=== PATIENT | male | born 1960 | race Caucasian/White ===

== ENCOUNTER 2021-04-20 12:50 | Inpatient (IN) | payer SELFPAY ==
[~2021-04-20] VITALS: Ht 180.3 cm; Wt 86.2 kg
[2021-04-20 14:19] LABS: HEMOGLOBIN 10.8 gm/dl (14.0-17.5); RED BLOOD COUNT 4.44 M/UL (4.20-5.50); WHITE BLOOD COUNT 9.7 K/UL (4.5-11.0)
[2021-04-20 14:40] LABS: BUN/CREATININE RATIO 15 (0-10)
[2021-04-20] MEDS ORDERED: FISH OIL 1,0001 EACH PO (22:24)
[2021-04-20] MEDS ORDERED: LISINOPRIL5 MG PO (22:24)
[2021-04-20] MEDS ORDERED: ASPIRIN CHEWABL81 MG PO (22:24)
[2021-04-20] MEDS ORDERED: METFORMIN HCL500 M2 PO (22:26)
[2021-04-20] MEDS ORDERED: MAGNESIUM200 MG PO (22:26)
[2021-04-21 04:00] LABS: BUN/CREATININE RATIO 14 (0-10)
[2021-04-21 05:02] LABS: RED BLOOD COUNT 3.96 M/UL (4.20-5.50); WHITE BLOOD COUNT 7.6 K/UL (4.5-11.0)
[2021-04-21 10:35] LABS: BODY FLUID SOURCE PLEURAL; RBC (AUTOMATED) 24300 (0-100000); WBC (AUTOMATED) 1212 (0-500)
[2021-04-21 10:36] LABS: MONONUCLEAR CELLS 94 (75-100); POLYMORPHONUCLEAR % 6 (0-25)
[2021-04-21 11:44] LABS: LDH, BODY FLUID 749 U/L; TOTAL PROTEIN, BODY FLUID 2.9 gm/dL
[2021-04-22 03:26] LABS: BUN/CREATININE RATIO 19 (0-10)
[2021-04-22 03:34] LABS: HEMOGLOBIN 9.5 gm/dl (14.0-17.5); RED BLOOD COUNT 3.83 M/UL (4.20-5.50)
[2021-04-22 03:40] LABS: WHITE BLOOD COUNT 9.9 K/UL (4.5-11.0)
[2021-04-22 15:11] LABS: HEMATOCRIT 33.4 % (37.5-51.0)
[2021-04-22 23:25] LABS: HEMOGLOBIN 8.9 gm/dl (14.0-17.5); RED BLOOD COUNT 3.65 M/UL (4.20-5.50); WHITE BLOOD COUNT 9.9 K/UL (4.5-11.0)
[2021-04-23 03:21] LABS: RED BLOOD COUNT 3.68 M/UL (4.20-5.50); WHITE BLOOD COUNT 9.1 K/UL (4.5-11.0)
[2021-04-23 03:38] LABS: BUN/CREATININE RATIO 18 (0-10)
[2021-04-23] MEDS ORDERED: PROTONIX40 MG PO (09:44)
[2021-04-23] MEDS ORDERED: LEVOFLOXACIN750 MG PO (09:44)
[2021-04-23] MEDS ORDERED: CHRONULAC20 GM/30 M PO (09:44)
[2021-04-23] MEDS ORDERED: ZOFRAN 4 MG TAB4 MG PO (09:44)
[2021-04-23] MEDS ORDERED: COMBIVENT RESPIM4 GM INH (09:44)
[2021-04-23] MEDS ORDERED: SYMBICORT 16010.2 GM INH (09:44)
[2021-04-23] MEDS ORDERED: FERROUS SULFAT325 M2 PO (09:44)
[2021-04-23] MEDS ORDERED: HYDROCODON-ACE1 EAC4 PO (11:10)
--- NOTE | 2021-04-23 11:13 | NUR ---
PT DROPPED TO 87% ON ROOM AIR
== END 2021-04-23 13:47 | disposition home or self-care (01) | DRG 167 ==
LOC: ER1 12:50 → PROG CARE 20:38 → CDU 20:38 → PROG CARE 22:12
PROVIDERS: Internal Medicine; Internal Medicine Critical Care Medicine; Internal Medicine Hematology & Oncology; Physician Assistant; ADMIT Internal Medicine
PROC: 0W993ZZ Drainage of Right Pleural Cavity, Percutaneous Approach (ICD-10-PCS; principal; 2021-04-21)
PROC: 0BBK8ZX Excision of Right Lung, Via Natural or Artificial Opening Endoscopic, Diagnostic (ICD-10-PCS; 2021-04-22)
PROC: 0BB48ZX Excision of Right Upper Lobe Bronchus, Via Natural or Artificial Opening Endoscopic, Diagnostic (ICD-10-PCS; 2021-04-22)
PROC: 0B9K8ZX Drainage of Right Lung, Via Natural or Artificial Opening Endoscopic, Diagnostic (ICD-10-PCS; 2021-04-22)
PROC: 0BD48ZX Extraction of Right Upper Lobe Bronchus, Via Natural or Artificial Opening Endoscopic, Diagnostic (ICD-10-PCS; 2021-04-22)
DX: C34.11 Malignant neoplasm of upper lobe, right bronchus or lung (principal); J91.0 Malignant pleural effusion; C77.9 Secondary and unspecified malignant neoplasm of lymph node, unspecified; E87.1 Hypo-osmolality and hyponatremia; E46 Unspecified protein-calorie malnutrition; C78.2 Secondary malignant neoplasm of pleura; J44.9 Chronic obstructive pulmonary disease, unspecified; F17.210 Nicotine dependence, cigarettes, uncomplicated; K21.9 Gastro-esophageal reflux disease without esophagitis; D50.9 Iron deficiency anemia, unspecified; R63.0 Anorexia; E86.0 Dehydration; E78.5 Hyperlipidemia, unspecified; E11.9 Type 2 diabetes mellitus without complications; E78.00 Pure hypercholesterolemia, unspecified; Z88.0 Allergy status to penicillin; Z79.84 Long term (current) use of oral hypoglycemic drugs; Z79.899 Other long term (current) drug therapy; Z79.82 Long term (current) use of aspirin; Z68.26 Body mass index [BMI] 26.0-26.9, adult
CPT/HCPCS: 36415; 71045; 71260; 80048; 80053; 81001; 82550; 82553; 82607; 82728; 82747; 82962; 83540; 83550; 83605; 83615; 83690; 83735; 83921; 83986; 84100; 84155; 84157; 84439; 84443; 84484; 84550; 85025; 85045; 85610; 85652; 86140; 87015; 87070; 87116; 87205; 89051; 93005; 94640; 94760; 96374; 96375; 96376; 99285; C9113; J0330; J1885; J2270; J2405; J3010; J3370; J3475; J7030; J7040; J7070; Q9967; U0002

== ENCOUNTER → 2021-04-30 | Outpatient (CLI) | payer OTHER ==
[~2021-04-30] MED LIST: ASPIRIN CHEWABL81 MG PO; CHRONULAC20 GM/30 M PO; COMBIVENT RESPIM4 GM INH; FERROUS SULFAT325 M2 PO; FISH OIL 1,0001 EACH PO; HYDROCODON-ACE1 EAC4 PO; LEVOFLOXACIN750 MG PO; LISINOPRIL5 MG PO; MAGNESIUM200 MG PO; METFORMIN HCL500 M2 PO; PROTONIX40 MG PO; SYMBICORT 16010.2 GM INH; ZOFRAN 4 MG TAB4 MG PO
== END ==
LOC: HEART 5 14:04
DX: J44.9 Chronic obstructive pulmonary disease, unspecified (principal)
CPT/HCPCS: 94060; 94729

== ENCOUNTER → 2021-05-08 | Outpatient (CLI) | payer OTHER ==
[~2021-05-08] MED LIST changes: +B COMPLEX1 EACH PO; +BENADRYL25 MG PO; +FERROUS SULFAT325 MG PO; +HYDROCODON-ACE1 EAC2 PO; +MAGNESIUM400 M2 PO; +PEPCID; +PEPCID20 MG PO; +PROTONIX 40 MG40 M1 PO; +VITAMIN E180 MG PO
[2021-05-08 12:00] LABS: HEMOGLOBIN 9.4 gm/dl (14.0-17.5); RED BLOOD COUNT 3.85 M/UL (4.20-5.50); WHITE BLOOD COUNT 9.6 K/UL (4.5-11.0)
[2021-05-08 12:27] LABS: BUN/CREATININE RATIO 23 (0-10)
== END ==
LOC: OPSV2 09:59
PROVIDERS: Surgery
DX: Z01.818 Encounter for other preprocedural examination (principal); R91.8 Other nonspecific abnormal finding of lung field
CPT/HCPCS: 36415; 71046; 80048; 85025; 93005

== ENCOUNTER → 2021-05-12 | Day surgery (SDC) | payer OTHER ==
[~2021-05-12] VITALS: Ht 180.3 cm; Wt 86.2 kg
== END | disposition home or self-care (01) ==
LOC: OR 06:08
DX: C34.91 Malignant neoplasm of unspecified part of right bronchus or lung (principal); J91.8 Pleural effusion in other conditions classified elsewhere; J44.9 Chronic obstructive pulmonary disease, unspecified; I10 Essential (primary) hypertension; E78.00 Pure hypercholesterolemia, unspecified; E11.9 Type 2 diabetes mellitus without complications; F17.210 Nicotine dependence, cigarettes, uncomplicated; Z88.0 Allergy status to penicillin; Z79.82 Long term (current) use of aspirin; Z79.899 Other long term (current) drug therapy; Z20.822 Contact with and (suspected) exposure to COVID-19
CPT/HCPCS: 71045; 77001; 82962; C1729; C1750; C1769; C1788; J1100; J1642; J2001; J2405; J2704; J3010; J3370; J7030; J7040; J7070; J7120

== ENCOUNTER → 2021-05-19 | Outpatient (CLI) | payer OTHER | LOC: MRI 15:00 | DX: C34.31 Malignant neoplasm of lower lobe, right bronchus or lung (principal); C78.02 Secondary malignant neoplasm of left lung | CPT/HCPCS: 70553; A9577 ==

== ENCOUNTER → 2021-07-09 | Outpatient (CLI) | payer OTHER ==
[2021-07-09 10:19] LABS: HEMOGLOBIN 10.2 gm/dl (14.0-17.5); RED BLOOD COUNT 4.23 M/UL (4.20-5.50); WHITE BLOOD COUNT 7.6 K/UL (4.5-11.0)
[2021-07-09 10:44] LABS: BUN/CREATININE RATIO 33 (0-10)
== END ==
LOC: CT 06-26 13:30
PROVIDERS: Internal Medicine Hematology & Oncology
DX: C34.31 Malignant neoplasm of lower lobe, right bronchus or lung (principal); C78.02 Secondary malignant neoplasm of left lung; C79.51 Secondary malignant neoplasm of bone
CPT/HCPCS: 36415; 71260; 80053; 84443; 85025; Q9967

== ENCOUNTER → 2021-07-23 | Day surgery (SDC) | payer OTHER | END | disposition home or self-care (01) | LOC: OR 07:59 | DX: K22.4 Dyskinesia of esophagus (principal); R10.9 Unspecified abdominal pain; J44.9 Chronic obstructive pulmonary disease, unspecified; Z85.118 Personal history of other malignant neoplasm of bronchus and lung; Z92.21 Personal history of antineoplastic chemotherapy; Z72.0 Tobacco use; Z88.0 Allergy status to penicillin | CPT/HCPCS: J2704; J3010; J7040 ==

== ENCOUNTER 2021-07-29 14:26 | Inpatient (IN) | payer OTHER ==
[~2021-07-29] VITALS: Ht 180.3 cm; Wt 73.5 kg
[2021-07-29 15:14] LABS: HEMOGLOBIN 9.3 gm/dl (14.0-17.5); RED BLOOD COUNT 3.77 M/UL (4.20-5.50)
[2021-07-29 15:42] LABS: BUN/CREATININE RATIO 29 (0-10)
[2021-07-30 03:10] LABS: HEMOGLOBIN 9.1 gm/dl (14.0-17.5); RED BLOOD COUNT 3.68 M/UL (4.20-5.50)
[2021-07-30 03:13] LABS: WHITE BLOOD COUNT 8.2 K/UL (4.5-11.0)
[2021-07-30 03:34] LABS: BUN/CREATININE RATIO 43 (0-10)
[2021-07-30] MEDS ORDERED: ALBUTEROL2.5 MG/3 M INH (09:23)
[2021-07-30] MEDS ORDERED: PROVENTIL HFA6.7 GM INH (09:26)
[2021-07-30] MEDS ORDERED: FEROSUL325 MG PO (09:26)
[2021-07-30 17:08] LABS: HEMOGLOBIN 8.2 gm/dl (14.0-17.5)
[2021-07-31] MEDS ORDERED: ROBITUSSIN100 MG/5 M PO (11:30)
[2021-07-31] MEDS ORDERED: NICOTINE PATCH1 EAC2 TOP (11:30)
[2021-07-31 12:42] LABS: HEMOGLOBIN 7.9 gm/dl (14.0-17.5); WHITE BLOOD COUNT 7.4 K/UL (4.5-11.0)
[2021-07-31 12:57] LABS: RED BLOOD COUNT 3.18 M/UL (4.20-5.50)
[2021-07-31 13:09] LABS: BUN/CREATININE RATIO 39 (0-10)
[2021-07-31] MEDS ORDERED: MS CONTIN TAB S15 MG PO (13:20)
== END 2021-07-31 16:39 | disposition home or self-care (01) | DRG 180 ==
LOC: ER1 14:26 → CDU 17:49 → PROG CARE 17:49
PROVIDERS: Internal Medicine Critical Care Medicine; Preventive Medicine Occupational Medicine; Surgery; ADMIT Internal Medicine
PROC: 0WH933Z Insertion of Infusion Device into Right Pleural Cavity, Percutaneous Approach (ICD-10-PCS; 2021-07-30)
PROC: 0WP9X3Z Removal of Infusion Device from Right Pleural Cavity, External Approach (ICD-10-PCS; principal; 2021-07-30 12:00)
DX: C34.90 Malignant neoplasm of unspecified part of unspecified bronchus or lung (principal); J18.9 Pneumonia, unspecified organism; J96.21 Acute and chronic respiratory failure with hypoxia; Z20.822 Contact with and (suspected) exposure to COVID-19; J90 Pleural effusion, not elsewhere classified; C79.89 Secondary malignant neoplasm of other specified sites; C79.02 Secondary malignant neoplasm of left kidney and renal pelvis; C79.01 Secondary malignant neoplasm of right kidney and renal pelvis; C78.7 Secondary malignant neoplasm of liver and intrahepatic bile duct; C79.51 Secondary malignant neoplasm of bone; E44.0 Moderate protein-calorie malnutrition; T85.618A Breakdown (mechanical) of other specified internal prosthetic devices, implants and grafts, initial encounter; E22.2 Syndrome of inappropriate secretion of antidiuretic hormone; Y83.8 Other surgical procedures as the cause of abnormal reaction of the patient, or of later complication, without mention of misadventure at the time of the procedure; R13.10 Dysphagia, unspecified; J44.9 Chronic obstructive pulmonary disease, unspecified; F17.210 Nicotine dependence, cigarettes, uncomplicated; K21.9 Gastro-esophageal reflux disease without esophagitis; D64.9 Anemia, unspecified; Z88.0 Allergy status to penicillin; Z68.22 Body mass index [BMI] 22.0-22.9, adult; Z99.81 Dependence on supplemental oxygen
CPT/HCPCS: 36415; 36600; 71045; 71275; 80048; 80053; 82803; 83605; 83735; 83880; 84100; 85014; 85018; 85025; 85027; 85652; 86140; 87040; 93005; 94640; 94664; 94760; 96374; 96375; 99285; C1729; C9113; J1170; J1940; J1956; J2405; J3010; J7040; Q9967; U0002

== ENCOUNTER → 2021-08-05 | Outpatient (CLI) | payer OTHER ==
[~2021-08-05] MED LIST changes: +ALBUTEROL2.5 MG/3 M INH; +ASCORBIC ACID500 MG PO; +FEROSUL325 MG PO; +MS CONTIN TAB S15 MG PO; +NICOTINE PATCH1 EAC2 TOP; +PROVENTIL HFA6.7 GM INH; +ROBITUSSIN100 MG/5 M PO
== END ==
LOC: NM 07-14 08:10
DX: C34.31 Malignant neoplasm of lower lobe, right bronchus or lung (principal); C79.51 Secondary malignant neoplasm of bone; C78.02 Secondary malignant neoplasm of left lung
CPT/HCPCS: 78306; A9503

== ENCOUNTER 2021-08-09 08:33 | Inpatient (IN) | payer OTHER ==
[~2021-08-09] VITALS: Ht 180.3 cm; Wt 73.6 kg
[~2021-08-09 08:33] MED LIST changes: -ASCORBIC ACID500 MG PO
[2021-08-09 09:40] LABS: HEMOGLOBIN 7.8 gm/dl (14.0-17.5); RED BLOOD COUNT 3.1 M/UL (4.20-5.50); WHITE BLOOD COUNT 3.3 K/UL (4.5-11.0)
[2021-08-09 13:21] LABS: BUN/CREATININE RATIO 21 (0-10)
[2021-08-09] MEDS ORDERED: ASCORBIC ACID500 MG PO (13:29)
[2021-08-10 08:03] LABS: HEMOGLOBIN 7.2 gm/dl (14.0-17.5); RED BLOOD COUNT 2.86 M/UL (4.20-5.50); WHITE BLOOD COUNT 3.5 K/UL (4.5-11.0)
[2021-08-10 08:24] LABS: BUN/CREATININE RATIO 19 (0-10)
[2021-08-12 16:14] LABS: ORGANISM ID Not indicated. (.); SPECIMEN SOURCE Urine (.); STREPTOCOCCUS PNEUMONIAE AG Negative (Negative)
== END 2021-08-10 17:30 | disposition home health service (06) | DRG 194 ==
LOC: ER1 08:33 → CDU 11:56 → PROG CARE 11:56
PROVIDERS: Emergency Medicine; Internal Medicine Pulmonary Disease; ADMIT Internal Medicine
PROC: 30233Q1 Transfusion of Nonautologous White Cells into Peripheral Vein, Percutaneous Approach (ICD-10-PCS; principal; 2021-08-10)
DX: J18.9 Pneumonia, unspecified organism (principal); C34.90 Malignant neoplasm of unspecified part of unspecified bronchus or lung; Z20.822 Contact with and (suspected) exposure to COVID-19; J91.0 Malignant pleural effusion; D61.818 Other pancytopenia; E22.2 Syndrome of inappropriate secretion of antidiuretic hormone; J96.11 Chronic respiratory failure with hypoxia; E44.0 Moderate protein-calorie malnutrition; C78.7 Secondary malignant neoplasm of liver and intrahepatic bile duct; C79.00 Secondary malignant neoplasm of unspecified kidney and renal pelvis; J44.9 Chronic obstructive pulmonary disease, unspecified; K22.4 Dyskinesia of esophagus; R59.9 Enlarged lymph nodes, unspecified; K21.9 Gastro-esophageal reflux disease without esophagitis; D64.9 Anemia, unspecified; Z88.0 Allergy status to penicillin; Z87.891 Personal history of nicotine dependence; Z68.22 Body mass index [BMI] 22.0-22.9, adult
CPT/HCPCS: 36415; 36600; 71045; 71250; 80053; 82550; 82553; 82803; 83605; 83735; 83880; 84100; 84484; 85025; 86140; 86850; 86900; 86901; 86920; 87040; 87086; 87278; 87899; 93005; 94640; 94760; 96374; 96375; 96376; 99285; J1650; J2185; J2270; J2405; J3370; J7040; J7050; J7070; P9016

== ENCOUNTER → 2021-08-21 | Outpatient (CLI) | payer OTHER ==
[~2021-08-21] MED LIST changes: +ASCORBIC ACID500 MG PO
== END ==
LOC: RAD 07-28 09:30
DX: R13.19 Other dysphagia (principal); J91.0 Malignant pleural effusion
CPT/HCPCS: 71046; 74221

== ENCOUNTER 2021-09-25 18:48 | Emergency (ER) | payer OTHER ==
[2021-09-25 21:21] LABS: HEMOGLOBIN 7.5 gm/dl (14.0-17.5); RED BLOOD COUNT 2.65 M/UL (4.20-5.50); WHITE BLOOD COUNT 9.3 K/UL (4.5-11.0)
[2021-09-25 21:50] LABS: BUN/CREATININE RATIO 34 (0-10)
== END 2021-09-26 03:05 | disposition home or self-care (01) ==
LOC: ER1 18:48
PROVIDERS: Student in an Organized Health Care Education/Training Program
DX: R10.31 Right lower quadrant pain (principal); C34.91 Malignant neoplasm of unspecified part of right bronchus or lung; C78.7 Secondary malignant neoplasm of liver and intrahepatic bile duct; C79.51 Secondary malignant neoplasm of bone; R10.817 Generalized abdominal tenderness; E11.9 Type 2 diabetes mellitus without complications; I10 Essential (primary) hypertension; F17.210 Nicotine dependence, cigarettes, uncomplicated
CPT/HCPCS: 71045; 80053; 81001; 82550; 82553; 84484; 85025; 87086; 93005; 96374; 96375; 99284; Q9967

== ENCOUNTER → 2021-10-13 | Day surgery (SDC) | payer OTHER ==
[~2021-10-13] MED LIST changes: +FLONASE ALLER15.8 ML; +PROAIR HFA8.5 GM INH; +ROXANOL SO10 MG/5 ML PO; +SPIRIVA HANDIH18 MCG PO
== END | disposition home or self-care (01) ==
LOC: OR 06:01
DX: E46 Unspecified protein-calorie malnutrition (principal); C34.11 Malignant neoplasm of upper lobe, right bronchus or lung; I10 Essential (primary) hypertension; J44.9 Chronic obstructive pulmonary disease, unspecified; E11.9 Type 2 diabetes mellitus without complications; G47.33 Obstructive sleep apnea (adult) (pediatric); Z87.891 Personal history of nicotine dependence; Z79.899 Other long term (current) drug therapy; Z88.0 Allergy status to penicillin
CPT/HCPCS: 82962; J1642; J2001; J2704; J3010

== ENCOUNTER 2021-10-16 09:58 | Inpatient (IN) | payer OTHER ==
[~2021-10-16] VITALS: Ht 180.3 cm; Wt 62.6 kg
[~2021-10-16 09:58] MED LIST changes: -FLONASE ALLER15.8 ML; -ROXANOL SO10 MG/5 ML PO; -SPIRIVA HANDIH18 MCG PO
[2021-10-16 10:55] LABS: BUN/CREATININE RATIO 45 (0-10)
[2021-10-16 11:53] LABS: RED BLOOD COUNT 3.79 M/UL (4.20-5.50); WHITE BLOOD COUNT 12.6 K/UL (4.5-11.0)
[2021-10-16] MEDS ORDERED: ROXANOL SO10 MG/5 ML PO (14:30)
[2021-10-16] MEDS ORDERED: SPIRIVA HANDIH18 MCG INH (14:30)
[2021-10-16] MEDS ORDERED: FLONASE ALLER15.8 ML (14:31)
[2021-10-17 05:26] LABS: HEMOGLOBIN 9.6 gm/dl (14.0-17.5); WHITE BLOOD COUNT 10.8 K/UL (4.5-11.0)
[2021-10-17 05:31] LABS: RED BLOOD COUNT 3.27 M/UL (4.20-5.50)
[2021-10-17 05:36] LABS: BUN/CREATININE RATIO 40 (0-10)
--- NOTE | 2021-10-17 08:29 | NUR ---
PT NOTED TO BE COUGHING UP BRIGHT RED BLOOD, IN RESP DISTRESS 02 SAT IS 85% ON 4LNC. PT HAS HAD AROUND 500ML OUTPUT FROM HIS CHEST TUBE. 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 PT STATES, " I CANT BREATHE".
--- NOTE | 2021-10-17 08:39 | NUR ---
RESP AT BEDSIDE GIVING BREATHING TX, AND PLACED PT ON AIRVO. 02 SAT IS 100% HR 133, RR 27. PT STILL IN RESP DISTRESS. WCM
[2021-10-18 03:13] LABS: HEMOGLOBIN 9.6 gm/dl (14.0-17.5); RED BLOOD COUNT 3.25 M/UL (4.20-5.50)
[2021-10-18 03:23] LABS: WHITE BLOOD COUNT 7.3 K/UL (4.5-11.0)
[2021-10-18 06:53] LABS: BUN/CREATININE RATIO 55 (0-10)
[2021-10-19 02:32] LABS: HEMOGLOBIN 9.5 gm/dl (14.0-17.5); RED BLOOD COUNT 3.22 M/UL (4.20-5.50)
[2021-10-19 02:35] LABS: WHITE BLOOD COUNT 13.3 K/UL (4.5-11.0)
[2021-10-19 02:40] LABS: BUN/CREATININE RATIO 48 (0-10)
[2021-10-20 02:20] LABS: HEMOGLOBIN 9.8 gm/dl (14.0-17.5); RED BLOOD COUNT 3.32 M/UL (4.20-5.50); WHITE BLOOD COUNT 16.1 K/UL (4.5-11.0)
[2021-10-20 02:43] LABS: BUN/CREATININE RATIO 57 (0-10)
[2021-10-21 06:34] LABS: HEMOGLOBIN 11.2 gm/dl (14.0-17.5); WHITE BLOOD COUNT 15.4 K/UL (4.5-11.0)
[2021-10-21 06:38] LABS: RED BLOOD COUNT 3.79 M/UL (4.20-5.50)
[2021-10-21 07:28] LABS: BUN/CREATININE RATIO 39 (0-10)
[2021-10-22 15:29] LABS: HEMOGLOBIN 11.1 gm/dl (14.0-17.5); RED BLOOD COUNT 3.75 M/UL (4.20-5.50)
[2021-10-22 15:53] LABS: BUN/CREATININE RATIO 58 (0-10)
[2021-10-23 02:18] LABS: HEMOGLOBIN 11.3 gm/dl (14.0-17.5); RED BLOOD COUNT 3.88 M/UL (4.20-5.50); WHITE BLOOD COUNT 16.8 K/UL (4.5-11.0)
[2021-10-23 02:51] LABS: BUN/CREATININE RATIO 52 (0-10)
[2021-10-24 03:39] LABS: HEMOGLOBIN 11.5 gm/dl (14.0-17.5); RED BLOOD COUNT 3.9 M/UL (4.20-5.50); WHITE BLOOD COUNT 18.1 K/UL (4.5-11.0)
[2021-10-24 04:21] LABS: BUN/CREATININE RATIO 50 (0-10)
--- NOTE | 2021-10-26 04:46 | NUR ---
UNABLE TO ASCULTATE STOMACH SOUNDS FOR PEG TUBE PLACEMENT. HAD NEEL HANCOCK RN VERIFY WELL, CONTACTED DR. MULLER WHO ORDERED ABD XRAY FOR PLACEMENT. XRAY OBTAINED, AWAITING RESULTS NO MEDS OR FEEDS GIVEN THROUGH TUBE THIS SHIFT. WILL MONITOR PATIENT.
[2021-10-26 04:51] LABS: HEMOGLOBIN 12.4 gm/dl (14.0-17.5); RED BLOOD COUNT 4.16 M/UL (4.20-5.50)
[2021-10-26 05:30] LABS: BUN/CREATININE RATIO 52 (0-10)
--- NOTE | 2021-10-27 04:57 | NUR ---
PATIENT REFUSED PM TUBE FEED OF JEVITA 1.5.
[2021-10-28 02:47] LABS: HEMOGLOBIN 11.6 gm/dl (14.0-17.5); RED BLOOD COUNT 3.89 M/UL (4.20-5.50)
[2021-10-28 02:51] LABS: WHITE BLOOD COUNT 13.4 K/UL (4.5-11.0)
[2021-10-28 03:56] LABS: BUN/CREATININE RATIO 85 (0-10)
[2021-10-28] MEDS ORDERED: NICOTINE PATCH1 EAC2 TD (09:43)
[2021-10-28] MEDS ORDERED: POLYETHYLENE GL17 GM GT (09:43)
[2021-10-28] MEDS ORDERED: LOPRESSOR 25 MG25 MG PEG (09:43)
== END 2021-10-28 18:57 | disposition home or self-care (01) | DRG 919 ==
LOC: ER1 09:58 → PROG CARE 12:47 → M/S 12:47 → CDU 12:47 → PROG CARE 17:41 → M/S 10-24 00:32
PROVIDERS: Family Medicine; Internal Medicine; Internal Medicine Infectious Disease; Internal Medicine Pulmonary Disease; Physician Assistant Medical; ADMIT Internal Medicine
PROC: 0W9930Z Drainage of Right Pleural Cavity with Drainage Device, Percutaneous Approach (ICD-10-PCS; principal; 2021-10-16)
PROC: 3E0G76Z Introduction of Nutritional Substance into Upper GI, Via Natural or Artificial Opening (ICD-10-PCS; 2021-10-16)
PROC: 3E0L3GC Introduction of Other Therapeutic Substance into Pleural Cavity, Percutaneous Approach (ICD-10-PCS; 2021-10-16)
PROC: 3E03329 Introduction of Other Anti-infective into Peripheral Vein, Percutaneous Approach (ICD-10-PCS; 2021-10-16)
PROC: 5A0935A Assistance with Respiratory Ventilation, Less than 24 Consecutive Hours, High Flow/Velocity Cannula (ICD-10-PCS; 2021-10-17)
DX: T85.898A Other specified complication of other internal prosthetic devices, implants and grafts, initial encounter (principal); A41.9 Sepsis, unspecified organism; E43 Unspecified severe protein-calorie malnutrition; J18.9 Pneumonia, unspecified organism; J96.21 Acute and chronic respiratory failure with hypoxia; R65.20 Severe sepsis without septic shock; C34.90 Malignant neoplasm of unspecified part of unspecified bronchus or lung; J91.0 Malignant pleural effusion; J44.1 Chronic obstructive pulmonary disease with (acute) exacerbation; J44.0 Chronic obstructive pulmonary disease with (acute) lower respiratory infection; R04.2 Hemoptysis; E87.2 Acidosis; F11.20 Opioid dependence, uncomplicated; E22.2 Syndrome of inappropriate secretion of antidiuretic hormone; Z68.1 Body mass index [BMI] 19.9 or less, adult; R74.01 Elevation of levels of liver transaminase levels; T38.0X5A Adverse effect of glucocorticoids and synthetic analogues, initial encounter; Y83.8 Other surgical procedures as the cause of abnormal reaction of the patient, or of later complication, without mention of misadventure at the time of the procedure; K21.9 Gastro-esophageal reflux disease without esophagitis; R13.10 Dysphagia, unspecified; G89.29 Other chronic pain; D64.9 Anemia, unspecified; I48.0 Paroxysmal atrial fibrillation; R53.81 Other malaise; Z79.01 Long term (current) use of anticoagulants; Z88.0 Allergy status to penicillin; Z87.891 Personal history of nicotine dependence; Z51.5 Encounter for palliative care; Z93.1 Gastrostomy status
CPT/HCPCS: 36415; 36556; 36600; 71045; 71260; 74018; 80048; 80053; 80202; 82550; 82553; 82803; 82962; 83605; 83735; 84484; 85025; 85027; 85610; 85730; 87040; 93005; 94640; 94760; 94762; 96365; 96366; 96375; 97110; 97110-GP-CQ; 97116-GP-CQ; 97161; 97166; 97530; 97530-GP-CQ; 99285; C9113; J1650; J2020; J2185; J2270; J2405; J2920; J2997; J3370; J7070; Q9963; Q9967

== ENCOUNTER 2021-11-06 12:26 | Observation (INO) | payer OTHER ==
[~2021-11-06] VITALS: Ht 180.3 cm; Wt 63.5 kg
[~2021-11-06 12:26] MED LIST changes: +FLONASE ALLER15.8 ML; +LOPRESSOR 25 MG25 MG PEG; +NICOTINE PATCH1 EAC2 TD; +POLYETHYLENE GL17 GM GT; +ROXANOL SO10 MG/5 ML PO; +SPIRIVA HANDIH18 MCG INH
[2021-11-06 13:21] LABS: HEMOGLOBIN 10.2 gm/dl (14.0-17.5); RED BLOOD COUNT 3.4 M/UL (4.20-5.50); WHITE BLOOD COUNT 8.9 K/UL (4.5-11.0)
[2021-11-06 13:48] LABS: BUN/CREATININE RATIO 40 (0-10)
[2021-11-06] MEDS ORDERED: METOPROLOL TART25 MG PO (17:25)
[2021-11-06] MEDS ORDERED: NICOTINE PATCH1 EAC5 TD (17:25)
[2021-11-06] MEDS ORDERED: POLYETHYLENE GL17 GM PO (17:27)
--- NOTE | 2021-11-06 23:00 | NUR ---
PATIENT STATED THAT HE NORMALLY DOES (2) CANS OF TUBE FEEDING IN THE MORNING, (2) CANS OF TUBE FEEDING IN THE EVENING AND (2) CANS OF TUBE FEEDING AT BEDTIME. ATTEMPTED TO ADMINISTER PATIENT'S NIGHTLY DOSE OF TUBE FEEDING. HOWEVER, PATIENT REFUSED.
[2021-11-07 06:58] LABS: HEMOGLOBIN 9.5 gm/dl (14.0-17.5); RED BLOOD COUNT 3.12 M/UL (4.20-5.50); WHITE BLOOD COUNT 7.8 K/UL (4.5-11.0)
[2021-11-07 08:00] LABS: BUN/CREATININE RATIO 28 (0-10)
--- NOTE | 2021-11-07 13:55 | NUR ---
In room assisting Carole BE with procedure. PT reports increased pain, orders given and carried out. Pluerex catheter drained per MD. Pt requesting small sips of sprite, allows. Pt repositioned. call light in reach.
[2021-11-08 04:01] LABS: HEMOGLOBIN 9.5 gm/dl (14.0-17.5); RED BLOOD COUNT 3.08 M/UL (4.20-5.50); WHITE BLOOD COUNT 8.9 K/UL (4.5-11.0)
[2021-11-08 04:19] LABS: BUN/CREATININE RATIO 44 (0-10)
--- NOTE | 2021-11-08 14:41 | NUR ---
Pleurx drained per Dr. Lam 275mL drained. Pt could not tolerate any more to be drained.
[2021-11-09 03:41] LABS: HEMOGLOBIN 9.3 gm/dl (14.0-17.5); RED BLOOD COUNT 3.05 M/UL (4.20-5.50); WHITE BLOOD COUNT 9.1 K/UL (4.5-11.0)
[2021-11-09 03:53] LABS: BUN/CREATININE RATIO 45 (0-10)
[2021-11-10 04:45] LABS: HEMOGLOBIN 9.7 gm/dl (14.0-17.5); RED BLOOD COUNT 3.22 M/UL (4.20-5.50); WHITE BLOOD COUNT 9.1 K/UL (4.5-11.0)
[2021-11-10 05:08] LABS: BUN/CREATININE RATIO 29 (0-10)
[2021-11-11 04:42] LABS: HEMOGLOBIN 9.7 gm/dl (14.0-17.5); RED BLOOD COUNT 3.22 M/UL (4.20-5.50)
[2021-11-11 05:15] LABS: BUN/CREATININE RATIO 41 (0-10)
[2021-11-12 06:21] LABS: HEMOGLOBIN 8.8 gm/dl (14.0-17.5); RED BLOOD COUNT 2.98 M/UL (4.20-5.50); WHITE BLOOD COUNT 6.3 K/UL (4.5-11.0)
[2021-11-12 06:43] LABS: BUN/CREATININE RATIO 41 (0-10)
[2021-11-12] MEDS ORDERED: ROXANOL SO10 MG/5 ML GT (11:29)
[2021-11-12] MEDS ORDERED: FENTANYL1 EAC1 TD (11:31)
[2021-11-12] MEDS ORDERED: COLACE100 MG PO (11:39)
[2021-11-12] MEDS ORDERED: ZOFRAN 4 MG TAB4 MG PO (11:43)
== END 2021-11-12 15:30 | disposition other institution (70) ==
LOC: ER1 12:26 → MED SURG 4 16:05 → CDU 16:05 → MED SURG 4 16:05 → CDU 16:05 → MED SURG 4 16:05
PROVIDERS: Internal Medicine; Physician Assistant; Student in an Organized Health Care Education/Training Program; ADMIT Internal Medicine
DX: C34.90 Malignant neoplasm of unspecified part of unspecified bronchus or lung (principal); C79.9 Secondary malignant neoplasm of unspecified site; J91.0 Malignant pleural effusion; E87.1 Hypo-osmolality and hyponatremia; Z51.5 Encounter for palliative care; Z20.822 Contact with and (suspected) exposure to COVID-19; J44.9 Chronic obstructive pulmonary disease, unspecified; E11.9 Type 2 diabetes mellitus without complications; I10 Essential (primary) hypertension; Z88.0 Allergy status to penicillin
CPT/HCPCS: 36415; 36600; 71045; 80048; 80053; 82550; 82553; 82803; 83735; 83880; 84295; 84484; 85025; 85027; 93005; 94640; 94664; 94760; 96372; 96374; 96375; 99285; G0378; J1170; J1650; J2270; Q9967; U0002